=== PATIENT | male | born 1990 | race Two or more races ===

== ENCOUNTER 2023-04-11 11:23 | Outpatient (REF) | payer MEDICAID, SELFPAY ==
--- NOTE | ~2023-04-11 | XR_ITS ---
EXAMINATION: XR HAND, RIGHT CLINICAL INFORMATION: Pain and locking of one month's duration. COMPARISON: None available. TECHNIQUE: PA, lateral, and oblique views of the right hand. FINDINGS: The bones and soft tissues are normal. No fracture. Alignment is anatomic. Joint spaces are maintained. No erosions or soft tissue calcifications. XR/XR hand LT min 3V IMPRESSION: Normal right hand. EXAMINATION: XR HAND, LEFT CLINICAL INFORMATION: Pain and locking of one month's duration. COMPARISON: None available. TECHNIQUE: PA, lateral, and oblique views of the left hand. FINDINGS: The bones and soft tissues are normal. No fracture. Alignment is anatomic. Joint spaces are maintained. No erosions or soft tissue calcifications. IMPRESSION: Normal left hand.
--- NOTE | ~2023-04-11 | XR_ITS ---
EXAMINATION: XR HAND, RIGHT CLINICAL INFORMATION: Pain and locking of one month's duration. COMPARISON: None available. TECHNIQUE: PA, lateral, and oblique views of the right hand. FINDINGS: The bones and soft tissues are normal. No fracture. Alignment is anatomic. Joint spaces are maintained. No erosions or soft tissue calcifications. XR/XR hand RT min 3V IMPRESSION: Normal right hand. EXAMINATION: XR HAND, LEFT CLINICAL INFORMATION: Pain and locking of one month's duration. COMPARISON: None available. TECHNIQUE: PA, lateral, and oblique views of the left hand. FINDINGS: The bones and soft tissues are normal. No fracture. Alignment is anatomic. Joint spaces are maintained. No erosions or soft tissue calcifications. IMPRESSION: Normal left hand.
== END 2023-04-11 11:24 | disposition home or self-care (01) ==
LOC: HO.HHCX 11:23
PROVIDERS: Visit Provider Family Medicine
DX: M79.641 Pain in right hand (principal); M79.642 Pain in left hand
CPT/HCPCS: 73130

== ENCOUNTER 2023-04-22 13:47 | Outpatient (REF) | payer MEDICAID, SELFPAY ==
[2023-04-22 16:20] LABS: SCAN SMEAR FLAG 1
[2023-04-22 16:22] LABS: Basophils Absolute Auto 0.1 X10*3/uL (0.0-0.2); Eosinophils Percent Auto 0.6 % (0-4); Imm Gran Abs Auto 0.02 X10*3/uL (0.00-0.03); Imm Gran Pct Auto 0.4 % (0.0-0.4); Lymphocytes Absolute Auto 1.1 X10*3/uL (1.2-4.9); MANUAL DIFF FLAG SCAN; Mean Corpuscular HGB Conc 31.7 g/dl (31.0-36.0); Mean Corpuscular Hemoglobin 22.5 pg (27.0-33.0); Mean Corpuscular Volume 70.8 fL (80.0-98.0); Monocytes Absolute Auto 0.4 X10*3/uL (0.1-1.2); Monocytes Percent Auto 8.3 % (2-11); Neutrophils Absolute Auto 3.3 x10*3/uL (2.0-8.3); Neutrophils Percent Auto 67.7 % (45-73); Platelet Count 161 X10*3/uL (160-400); Red Blood Count 5.79 X10*6/uL (4.60-5.80); Red Cell Distribution Width 15.6 % (11.0-16.0); White Blood Count 4.9 X10*3/uL (4.8-10.8)
[2023-04-22 16:27] LABS: PLT ABN DIST 1
[2023-04-22 16:44] LABS: SLIDE REVIEW VERIFIED
[2023-04-22 16:47] LABS: Anion Gap 12 (12-20); Blood Urea Nitrogen 8 mg/dL (9-16); C Reactive Protein < 0.04 mg/dL (< or = 0.50); Calcium 9.6 mg/dL (8.4-10.2); Carbon Dioxide 25 mmol/L (22-29); Chloride 103 mmol/L (96-108); Estimated Glomerular Filt Rate > 60; Glucose Random 125 mg/dL (60-115); Potassium 4.3 mmol/L (3.3-5.1); Sodium 136 mmol/L (135-145)
[2023-04-23 12:40] LABS: CT PCR NOT DETECTED (Not Detect.); NG PCR NOT DETECTED (Not Detect.)
== END 2023-04-22 13:48 | disposition home or self-care (01) ==
LOC: HO.HHCL 13:47
PROVIDERS: Visit Provider Internal Medicine
DX: R30.0 Dysuria (principal); R10.32 Left lower quadrant pain; Z20.2 Contact with and (suspected) exposure to infections with a predominantly sexual mode of transmission
CPT/HCPCS: 0353U; 36415; 80048; 85025; 86140

== ENCOUNTER 2023-05-02 08:50 | Outpatient (REF) | payer MEDICAID, SELFPAY ==
--- NOTE | 2023-05-02 08:55 | EMG_ITS ---
Chief complaint: Patient reports 3 weeks acute onset of hand locking, numbness and pain. Denies neck pain. Denies any previous history of similar symptoms. Reason for referral: Evaluate for neuropathy versus radiculopathy Referred by: Dr. Agrawal Procedure done: Bilateral upper extremities NCS/EMG Precautions and/or limitations: None The limb temperature was monitored continuously and remained between 32-36 degrees C during the performance of the NCS. Nerve Conduction Studies Anti Sensory Summary Table ?Stim Site NR Onset (ms) Norm Onset (ms) Peak (ms) Norm Peak (ms) O-P Amp (?V) Norm O-P Amp Site1 Site2 Delta-0 (ms) Dist (cm) Bertin (m/s) Norm Bertin (m/s) Left Median Anti Sensory (2nd Digit) Wrist ? 3.0 3.7 <3.6 44.7 >10 Wrist 2nd Digit 3.0 14.0 47 Right Median Anti Sensory (2nd Digit) Wrist ? 3.1 3.9 <3.6 36.1 >10 Wrist 2nd Digit 3.1 14.0 45 Right Radial Anti Sensory (Thumb) Forearm ? 2.0 2.4 <3.1 1.5 Forearm Thumb 2.0 0.0 Left Ulnar Anti Sensory (5th Digit) Wrist ? 3.0 3.7 <3.7 31.7 >15.0 Wrist 5th Digit 3.0 14.0 47 Right Ulnar Anti Sensory (5th Digit) Wrist ? 3.0 3.7 <3.7 26.3 >15.0 Wrist 5th Digit 3.0 14.0 47 Motor Summary Table ?Stim Site NR Onset (ms) Norm Onset (ms) O-P Amp (mV) Norm O-P Amp iAmp (mV) Amp (1st) (%) Site1 Site2 Delta-0 (ms) Dist (cm) Bertin (m/s) Norm Bertin (m/s) Left Median Motor (Abd Poll Brev) Wrist ? 4.2 <3.9 12.6 >4.5 13.4 100.0 Elbow Wrist 4.5 23.0 51 >45 Elbow ? 8.7 10.3 12.0 81.7 Right Median Motor (Abd Poll Brev) Wrist ? 4.1 <3.9 8.2 >4.5 9.6 100.0 Elbow Wrist 4.2 23.0 55 >45 Elbow ? 8.3 8.6 10.2 104.9 Left Ulnar Motor Run #2 (Abd Dig Minimi) Wrist ? 2.9 <3.0 3.1 >5 4.2 100.0 B Elbow Wrist 4.2 32.0 76 >45 B Elbow ? 7.1 3.0 4.3 96.8 A Elbow B Elbow 1.3 10.0 77 >45 A Elbow ? 8.4 2.7 3.8 87.1 Right Ulnar Motor (Abd Dig Minimi) Wrist ? 3.0 <3.0 4.0 >5 4.4 100.0 B Elbow Wrist 4.0 32.5 81 >45 B Elbow ? 7.0 4.4 4.9 110.0 A Elbow B Elbow 1.3 10.0 77 >45 A Elbow ? 8.3 4.9 5.1 122.5 Paraspinal EMG ?Side Muscle Nerve Root Ins Act Fibs Psw Comment Right Cervical Upper Rami Nml Nml Nml Right Cervical Mid Rami Nml Nml Nml Right Cervical Lower Rami Nml Nml Nml Left Cervical Upper Rami Nml Nml Nml Left Cervical Mid Rami Nml Nml Nml Left Cervical Lower Rami Nml Nml Nml EMG ?Side Muscle Nerve Root Ins Act Fibs Psw Amp Dur Poly Recrt Int Pat Comment Right 1stDorInt Ulnar C8-T1 Nml Nml Nml Nml Nml 0 Nml Complete Right FlexCarRad Median C6-7 Nml Nml Nml Nml Nml 0 Nml Complete Right Biceps Musculocut C5-6 Nml Nml Nml Nml Nml 0 Nml Complete Right Triceps Radial C6-7-8 Nml Nml Nml Nml Nml 0 Nml Complete Right Deltoid Axillary C5-6 Nml Nml Nml Nml Nml 0 Nml Complete Left 1stDorInt Ulnar C8-T1 Nml Nml Nml Incr Incr 0 Nml Complete Left FlexCarRad Median C6-7 Nml Nml Nml Incr Incr 0 Reduced Complete Left Biceps Musculocut C5-6 Nml Nml Nml Nml Nml 0 Nml Complete Left Triceps Radial C6-7-8 Nml Nml Nml Nml Nml 0 Nml Complete Left Deltoid Axillary C5-6 Nml Nml Nml Nml Nml 0 Nml Complete FINDINGS: Bilateral median motor nerves showed prolonged distal latency, normal amplitude and normal conduction velocity. Bilateral ulnar motor nerves showed normal distal latency, small amplitude and normal conduction velocity. Bilateral median sensory nerves showed prolonged peak latency. All other nerves tested were within normal. Concentric needle EMG was performed in selected muscles of the bilateral upper extremities and cervical paraspinals. Study revealed Signs of electric abnormalities as shown in the table below. Left FCR showed increased duration and amplitude, reduced recruitment. Left FDI showed increased duration and amplitude. No denervation seen and paraspinals. IMPRESSION: 1. This is an abnormal study. 2. There is electrodiagnostic evidence for bilateral moderate-severe median neuropathy at the wrist, consistent with carpal tunnel syndrome.. 3. Cannot completely rule out between a bilateral C6 -7 radiculopathy vs bilateral ulnar neuropathy. CLINICAL COMMENT: Further clinical correlation recommended. Consider repeat EMG in 3 months. Thank you for your kind referral. Rena Lei MD, ANGEL Board Certified, [place] Board [employer] and Rehabilitation (ABPMR) Board Certified, [place] Board [employer] Electrodiagnostic Medicine (ABEM) CODIN [id number] x2 MTDD
== END 2023-05-02 08:51 | disposition home or self-care (01) ==
LOC: HO.NEURO 08:50
PROVIDERS: PCP Family Medicine; Visit Provider Family Medicine
DX: Z13.89 Encounter for screening for other disorder (principal)
CPT/HCPCS: 95886; 95911

== ENCOUNTER → 2023-05-02 08:55 | Outpatient (BNV) | payer MEDICAID, SELFPAY | PROVIDERS: PCP Family Medicine; Visit Provider Physical Medicine & Rehabilitation | DX: G56.13 Other lesions of median nerve, bilateral upper limbs (principal); G56.03 Carpal tunnel syndrome, bilateral upper limbs | CPT/HCPCS: 95886; 95911 ==

== ENCOUNTER 2023-07-09 15:00 | Outpatient (RCR) | payer MEDICAID, SELFPAY | END 2023-11-11 15:39 | disposition home or self-care (01) | LOC: HO.OT 15:00 | PROVIDERS: PCP Family Medicine; Visit Provider Family Medicine | DX: G56.03 Carpal tunnel syndrome, bilateral upper limbs (principal) | CPT/HCPCS: 97033; 97035; 97110; 97140; 97165 ==

== ENCOUNTER 2023-11-12 14:04 | Outpatient (AMB) | payer MEDICAID, SELFPAY ==
--- NOTE | 2023-11-12 14:28 | MHC.OFFVIS ---
Intake Vital Signs 11/12/23 14:29 Height 6 ft Weight 140 lb BMI 19.0 Handedness Right Intake Visit Reasons: ov- Bilateral CTS Intake Note: Branden 33 yr old right hand dominant male presents today for a new patient visit for CTS in bilateral hands. States his tingling is worse. Patient states his symptoms are worse in the night time and morning. Patient states that his left hand is worse and the right. EMG done. He - that his tingling is also worse when he is working. Allergies No Known Allergies Allergy (Verified 11/12/23 14:35) HPI ov- Bilateral CTS HPI Details Branden is a 33 year old right hand dominant man who presents for a NCS review of his bilateral hand numbness. He complains of numbness & tingling in his thumb, index, and middle fingers bilaterally, L>R. Symptoms intermittent, but daily, worse at night. He says he has occasional numbness in his small fingers, but this is not often. He works as a retail cosmetics sales counter manager. 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 Review of Systems Const All systems reviewed & are unremarkable except as noted in HPI and below Physical Exam Vital Signs: BMI result Body Mass Index 19.0 Const General: cooperative, healthy appearing and no acute distress Orientation/consciousness: patient oriented x3 HEENT Head: Yes normocephalic and Yes atraumatic Eyes EOM: EOMs intact bilaterally Resp Effort & Inspection: normal respiratory effort and able to speak in complete sentences Cardio Jugular venous distension: no JVD Skin General skin exam: turgor normal Rashes: no rashes Neuro General: patient oriented x3 Extrem Other: Evaluation of Bilateral Upper Extremity: The patient is alert, oriented, and in no acute distress Neuro: Median, Ulnar, Radial nerves motor and sensory intact and sensation is normal to the tips of all digits No thenar or intrinsic wasting Good APB muscle belly firing and good finger cross Vascular: Cap refill brisk ROM: He can make a fist and extend all his digits No locking or catching Skin: No lacerations or abrasions. General: No Ecchymosis. No Erythema or evidence of infection. Nerve Conduction Study: IMPRESSION: 1. This is an abnormal study. 2. There is electrodiagnostic evidence for bilateral moderate-severe median neuropathy at the wrist, consistent with carpal tunnel syndrome.. 3. Cannot completely rule out between a bilateral C6 -7 radiculopathy vs bilateral ulnar neuropathy. CLINICAL COMMENT: Further clinical correlation recommended. Consider repeat EMG in 3 months. Rena Lei MD, ANGEL 05/07/23 Psych Appearance: grossly normal Affect: normal affect Attitude: cooperative Assessment & Plan Assessment & Plan (1) Carpal tunnel syndrome of left wrist: Code(s): G56.02 - Carpal tunnel syndrome, left upper limb (2) Carpal tunnel syndrome of right wrist: Code(s): G56.01 - Carpal tunnel syndrome, right upper limb Plan Assessment & Plan: 1. Left carpal tunnel syndrome, moderate-severe Symptoms intermittent, but daily, worse at night I educated him about this condition I discussed operative and non-operative treatment options The patient would like to proceed with surgery, beginning with the left side The risks and benefits of operative treatment were discussed with the patient and the patient wishes to proceed with surgery. These risks include, but are not limited to risk of damage to blood vessels, nerves, tendons, infection, recurrence, incomplete relief of preoperative symptoms, persistent pain, possible need for further surgery and the risks associated with regional blocks and anesthesia. The plan is to take the patient to the operating room sometime in the next few weeks for the following procedures: 1. Left carpal tunnel release, under local All of the preoperative paperwork including the consent was reviewed today. All the patient's questions were answered. The patient understands that they will be contacted by our electrical engineering intern soon to schedule this procedure He denies Diabetes, blood thinners, asthma, heart, lung, kidney issues 2. Right carpal tunnel syndrome, moderate-severe Symptoms intermittent, but daily, worse at night We will discuss treatment at a later date when his left side has recovered from surgery Scribed for Donna Hdz MD by Norberto Cline bilingual medical receptionist, on 11/12/23 at 2:50 PM, EST. Coding Level of Care Code New Pt Level 4 (98395) Diagnoses Carpal tunnel syndrome of left wrist G56.02 Carpal tunnel syndrome of right wrist G56.01
[2023-11-12 14:29] VITALS: BMI 19.0
== END 2023-11-12 15:16 | disposition home or self-care (01) ==
PROVIDERS: PCP Family Medicine; Visit Provider Orthopaedic Surgery
DX: G56.03 Carpal tunnel syndrome, bilateral upper limbs (principal)
CPT/HCPCS: 99204

== ENCOUNTER → 2023-11-12 14:04 | Outpatient (BNVA) | payer MEDICAID, SELFPAY | PROVIDERS: PCP Family Medicine; Visit Provider Orthopaedic Surgery | DX: G56.03 Carpal tunnel syndrome, bilateral upper limbs (principal) | CPT/HCPCS: 99202 ==

== ENCOUNTER 2023-11-18 10:16 | Outpatient (REF) | payer MEDICAID, SELFPAY ==
[2023-11-18 12:11] LABS: Hematocrit 42.2 % (42.0-52.0); Hemoglobin 13.4 g/dl (14.0-18.0); Mean Corpuscular HGB Conc 31.8 g/dl (31.0-36.0); Mean Corpuscular Hemoglobin 22.8 pg (27.0-33.0); Mean Corpuscular Volume 71.8 fL (80.0-98.0); Red Blood Count 5.88 X10*6/uL (4.60-5.80); Red Cell Distribution Width 16.9 % (11.0-16.0); White Blood Count 6.3 X10*3/uL (4.8-10.8)
[2023-11-18 12:16] LABS: Platelet Count 174 X10*3/uL (160-400)
[2023-11-18 13:28] LABS: CT PCR NOT DETECTED (Not Detect.); NG PCR NOT DETECTED (Not Detect.)
[2023-11-18 13:28] LABS: Estimated Average Glucose 114 mg/dL; Hemoglobin A1c % 5.6 % (<6.0)
[2023-11-18 17:34] LABS: Alanine Aminotransferase 18 U/L (0-40); Albumin Level 4.5 g/dL (3.5-5.0); Alkaline Phosphatase 52 U/L (39-117); Anion Gap 10 (12-20); Aspartate Amino Transferase 18 U/L (5-37); Bilirubin Direct 0.1 mg/dL (0.0-0.5); Bilirubin Total 0.4 mg/dL (0.0-1.0); Blood Urea Nitrogen 11 mg/dL (9-16); Calcium 9.6 mg/dL (8.4-10.2); Carbon Dioxide 28 mmol/L (22-29); Chloride 105 mmol/L (96-108); Cholesterol 168 mg/dL (<200); Estimated Glomerular Filt Rate > 60; Ferritin 54 ng/mL (20-250); Free T4 (Free Thyroxine) 0.86 ng/dL (0.71-1.85); Glucose Random 73 mg/dL (60-115); HDL Cholesterol 48 mg/dL (>40); Iron 119 mcg/dL (45-160); LDL Cholesterol Calculated 99 mg/dL (<100); Percent Iron Saturation 40 % (15-50); Potassium 4.2 mmol/L (3.3-5.1); Sodium 139 mmol/L (135-145); Thyroid Stimulating Hormone 0.64 uIU/mL (0.32-4.0); Total Iron Binding Capacity 294 mcg/dL (228-428); Total Protein 7.3 g/dL (6.5-8.0); Triglycerides 109 mg/dL (<150); Unsaturated Iron Binding 175 ug/dL; Vitamin D 25-OH Total 19.1 ng/mL (>30)
[2023-11-18 19:27] LABS: Folate 5.1 ng/mL (> or = 4.0); Vitamin B12 345 pg/mL (200-900)
[2023-11-19 08:37] LABS: HBS Num1 > 1000.00 mIU/mL (0-7.99); HBsAGNum1 0.35 S/CO (0.00-0.99); HIV AB/AG Nonreactive (Nonreactive); HIV Num 1 0.05 S/CO (0.00-0.99); Hepatitis B Surface Antigen Negative (Negative); ~HepC Num1 0.28 S/CO (0.00-0.79); ~Hepatitis B Surface Antibody REACTIVE (Nonreactive); ~Hepatitis C Antibody Nonreactive (Nonreactive)
[2023-11-19 10:39] LABS: RPR Rapid Plasma Reagin NON-REACTIVE (NON-REACTIVE)
== END 2023-11-18 10:17 | disposition home or self-care (01) ==
LOC: HO.HHCL 10:16
PROVIDERS: Visit Provider Family Medicine
DX: Z00.00 Encounter for general adult medical examination without abnormal findings (principal); Z11.4 Encounter for screening for human immunodeficiency virus [HIV]; F33.9 Major depressive disorder, recurrent, unspecified; D64.9 Anemia, unspecified; J45.20 Mild intermittent asthma, uncomplicated; K21.9 Gastro-esophageal reflux disease without esophagitis; K58.1 Irritable bowel syndrome with constipation; R63.6 Underweight; G56.03 Carpal tunnel syndrome, bilateral upper limbs; R94.130 Abnormal response to nerve stimulation, unspecified; R20.2 Paresthesia of skin
CPT/HCPCS: 0353U; 36415; 80048; 80061; 80076; 82306; 82607; 82728; 82746; 83036; 83540; 84439; 84443; 85027; 86592; 86706; 86803; 87340; 87389

== ENCOUNTER 2024-03-29 13:41 | Day surgery (SDC) | payer MEDICAID, SELFPAY ==
--- NOTE | 2024-03-29 13:41 | MHC.SHP ---
Pre-Procedural Eval Section A - 24 Hr Update-Section A only Date of Service: 03/29/24 The patient is an INPATIENT: No Changes since office visit: No Cold of Flu in the past 2 weeks, No New Medical Problems, No Changes in Medication and No Patient answered all questions The patient has been examined within 24 hours of the surgical procedure. The History & Physical has been completed within 30 days and I have reviewed it.: Yes Section B - Complete if H&P > 30 days Chief Complaint: Carpal tunnel syndrome, left upper limb Allergies: Allergies Allergy/AdvReac Type Severity Reaction Status Date / Time No Known Allergies Allergy Verified 11/12/23 14:35 Exam Exam Comment: Left carpal tunnel syndrome Plan Diagnosis/Plan: Unchanged I have reviewed the history and physical and performed a pertinent physical examination on my patient. No changes have occurred unless specified. Time Spent With Patient Time: Total time managing care of this patient today ____ minutes.
--- NOTE | 2024-03-29 13:42 | P.OP_ITS ---
Operative Note Operative Note Date of Service: 03/29/24 Narrative: Preop diagnosis: 1. Left Carpal tunnel syndrome Postop diagnosis: same Procedure: 1. Left Carpal tunnel release Surgeon: Donna Hdz MD Security Alarm Technician: None Anesthesia: local block using 1% lidocaine with epinephrine Findings: Thickened transverse carpal ligament. EBL: Less than 5 mL Specimens: None Complications: None Disposition: Brought to recovery room in stable condition Plan: Follow-up for 10-14 days for wound check and suture removal Indications: The patient is 33 years old, with left carpal tunnel syndrome that has been unresponsive to nonoperative management. The risks and benefits of operative treatment including but not limited to risk of damage to blood vessels, nerves, tendons, infection, persistent pain, persistent symptoms, or possible need for additional surgery were discussed with the patient and the patient wishes to proceed with surgery. Procedure: Once consent was obtained a local block was performed using a combination of 1% lidocaine with epinephrine. The patient was then brought back to the operating suite and placed on the operative table in supine position. The left upper extremity was prepped and draped in a standard surgical fashion. Once assured that we had a good block, a 2.0 cm longitudinal incision was made centered over the carpal tunnel. The incision was made through the skin to the subcutaneous tissues using a #15 blade. Dissection was made down to the level of the transverse carpal ligament with care being taken to protect the palmar cutaneous nerve. Once the transverse carpal ligament was clearly visualized, a longitudinal incision was made in the transverse carpal ligament 1st using a #15 blade, then using tenotomy scissors under direct visualization. Care was taken to look for and protect the motor branch of the median nerve when seen in this area. Once satisfied with our carpal tunnel release the wound was copiously irrigated with normal saline and hemostasis was obtained with a brief period of local pressure. The skin edges were reapproximated with some 5.0 nylon suture material and a sterile dressing was applied. The patient appears to have tolerated the procedure well and with no complicatio ns. All digits were well vascularized at the conclusion of the case.
[2024-03-29 14:23] VITALS: BMI 17.9
--- NOTE | 2024-03-29 15:23 | PC.NURSE ---
timeout completed pt tolerated well the block
[2024-03-29 17:03] VITALS: BP 114/74; PULSE 55; RESP 18; TEMP 36.8; O2SAT 100
== END 2024-03-29 16:55 | disposition home or self-care (01) ==
PROVIDERS: PCP Family Medicine; Visit Provider Orthopaedic Surgery
PROC: (CPT 64721; principal; 2024-03-29 15:40)
DX: G56.02 Carpal tunnel syndrome, left upper limb (principal); R20.0 Anesthesia of skin; R20.2 Paresthesia of skin; F17.210 Nicotine dependence, cigarettes, uncomplicated
CPT/HCPCS: 64721; J0171

== ENCOUNTER → 2024-03-29 13:41 | Outpatient (BNV) | payer MEDICAID, SELFPAY | PROVIDERS: PCP Family Medicine; Visit Provider Orthopaedic Surgery | DX: G56.02 Carpal tunnel syndrome, left upper limb (principal) | CPT/HCPCS: 64721 ==

== ENCOUNTER 2024-04-13 09:44 | Outpatient (AMB) | payer MEDICAID, SELFPAY ==
--- NOTE | 2024-04-13 09:55 | MHC.OFFVIS ---
Vital Signs 04/13/24 10:02 Handedness Right Intake Visit Reasons: PO, L CTR 03/29/24 AR Intake Note: Branden is a 33 year old right hand dominant male who presents today post operatively S/P Left Carpal Tunnel Release DOS: 03/28/2024 w/ Dr dHz. Patient reports numbness and tingling went away but now has complaints his left pinky is having pains. He says whenever he stretches out his fingers he feels a pulling sensation in between his DIP and PIP joint on the volar aspect. He has some visual bruising on the volar aspect of left pinky. Sutures will be removed and steri strips applied. Allergies hydromorphone [From Dilaudid] Allergy (Verified 04/13/24 10:02) Hives meperidine [From Demerol] Allergy (Verified 04/13/24 10:02) Hives morphine Allergy (Verified 04/13/24 10:02) Nausea and Vomiting HPI HPI PO, L CTR 03/29/24 AR: Details: Patient is a 33-year-old male who presents for postoperative evaluation status post left carpal tunnel release, DOS 03/29/[address] Hdz. Today, the patient reports that he is feeling well, but that he is still experiencing some numbness in the median nerve distribution of the left hand, understands that this was something he knew could happen from discussion prior to surgery. The patient also reports he has had some discomfort on the ulnar aspect of the left small finger over the last few days. Patient reports no issues with the incision site, and states that it feels better now that his stitches are out. Reports no erythema or drainage from the incision site. No other acute complaints or concerns at this time. [facility] Medical History Spontaneous pneumothorax Asthma Social History Alcohol intake: never Patient Tobacco Use Status: Current everyday Tobacco user Current occupation: jewelry sales/ right hand dominant Review of Systems Const All systems reviewed & are unremarkable except as noted in HPI and below Physical Exam Extrem Other: Left hand exam Patient is alert, oriented, and in no acute distress. Neuro: Patient reports diminished sensation in the tip of the left middle finger, as well as on the volar aspect of the 1st webspace Patient reports normal sensation of the tips of all of the digits of the right hand at this time Vascular: Cap refill brisk Pain: Patient reports some very mild tenderness to palpation about the proximal aspect of the incision site No other tenderness to palpation noted Range of motion of the left hand is full and painless ROM: Patient is able to make a closed fist and extend the digits of the left hand fully without difficulty Skin: Well approximated and well healing incision site noted the volar aspect of the left wrist General: No ecchymosis, erythema, or evidence of infection. Psych: Appears grossly normal Affect normal Attitude cooperative Right hand exam Patient is alert, oriented, and in no acute distress. Neuro: Patient reports diminished sensation in the median nerve distribution of the right hand Vascular: Cap refill brisk Pain: Tenderness to palpation over the A1 brennan of the right thumb Patient also reports discomfort with locking and catching of the right thumb ROM: Visible and palpable locking and catching of the right thumb noted Patient is able to make a closed fist and extend all other digits of the right hand fully without difficulty Skin: No lacerations or abrasions. General: No ecchymosis, erythema, or evidence of infection. Psych: Appears grossly normal Affect normal Attitude cooperative Results Reviewed Results Reviewed: IMPRESSION: 1. This is an abnormal study. 2. There is electrodiagnostic evidence for bilateral moderate-severe median neuropathy at the wrist, consistent with carpal tunnel syndrome.. 3. Cannot completely rule out between a bilateral C6 -7 radiculopathy vs bilateral ulnar neuropathy. CLINICAL COMMENT: Further clinical correlation recommended. Consider repeat EMG in 3 months. Rena Lei MD, ANGEL 05/07/23 Assessment & Plan Assessment & Plan (1) Carpal tunnel syndrome of right wrist: Code(s): G56.01 - Carpal tunnel syndrome, right upper limb Category: Medical (2) Carpal tunnel syndrome of left wrist: Code(s): G56.02 - Carpal tunnel syndrome, left upper limb Category: Medical (3) Trigger thumb, right thumb: Code(s): M65.311 - Trigger thumb, right thumb Category: Medical Plan 1. Carpal tunnel syndrome, right Symptoms constant, daily, worse at night 2. Trigger thumb, right I educated the patient about the condition. I discussed both operative and nonoperative treatment options. The patient would like to proceed with surgery. The risks and benefits of operative treatment were discussed with the patient and the patient wishes to proceed with surgery. These risks include, but are not limited to, risk of damage to blood vessels, nerves, tendons, infection, recurrence, incomplete relief of preoperative symptoms, persistent pain, possible need for further surgery, and the risks associated with regional blocks and/or anesthesia. Plan is to take the patient to the operating room at some point in the next few weeks for the following procedures: 1. Right carpal tunnel release under local anesthesia 2. Right trigger thumb release under local anesthesia All of the preoperative paperwork including the consent was discussed today. All of the patient's questions were answered in the clinic today. The patient understands that they will be in contact with our surgical sales representative to discuss scheduling their procedure. Patient denies diabetes, blood thinners, asthma, heart issues, lung issues, kidney issues, or current smoking. 2. Carpal tunnel syndrome, left Status post carpal tunnel release DOS 03/29/2024 Patient appears to be recovering well postoperatively Patient is educated about the typical recovery course At this time, patient is educated to continue with [id number] exercises to prevent stiffness of the right hand Patient is also educated that he should be on light duty for a further 2 weeks at work, as he will continue to have a 2 lb weight restriction in his left hand Patient is educated that he can start gradual ramp up back to full normal activity in 2 weeks Patient is amenable to this plan Patient will follow-up as needed with any acute concerns Medications: Discontinued oxycodone-acetaminophen 5-325 mg Partial Fill upon patient request. Discontinued Reason: Patient Completed Course 1 tab PO Q6H PRN 5 tabs 0RF pain Coding Level of Care Code Est Pt Level 4 (30799) Diagnoses Carpal tunnel syndrome of right wrist G56.01 Carpal tunnel syndrome of left wrist G56.02 Trigger thumb, right thumb M65.311
== END 2024-04-13 10:48 | disposition home or self-care (01) ==
PROVIDERS: PCP Family Medicine
DX: G56.03 Carpal tunnel syndrome, bilateral upper limbs (principal); M65.311 Trigger thumb, right thumb
CPT/HCPCS: 99214

== ENCOUNTER → 2024-04-13 09:44 | Outpatient (BNVA) | payer MEDICAID, SELFPAY | PROVIDERS: PCP Family Medicine | DX: G56.03 Carpal tunnel syndrome, bilateral upper limbs (principal); M65.311 Trigger thumb, right thumb | CPT/HCPCS: 99212 ==

== ENCOUNTER 2024-11-08 08:45 | Day surgery (SDC) | payer MEDICAID, SELFPAY ==
[2024-11-08 10:11] VITALS: BP 122/86; PULSE 62; RESP 16; TEMP 36.7; O2SAT 100; BMI 18.5
--- NOTE | 2024-11-08 11:18 | P.OP_ITS ---
Operative Note Operative Note Date of Service: 11/08/24 Narrative: Preop diagnosis: 1. Right Carpal tunnel syndrome 2. Right trigger thumb Postop diagnosis: same Procedure: 1. Right Carpal tunnel release 2. Right thumb trigger release Surgeon: Donna Hdz MD Inspector Aligning: None Anesthesia: local block using 1% lidocaine with epinephrine Findings: Thickened transverse carpal ligament. EBL: Less than 5 mL Specimens: None Complications: None Disposition: Brought to recovery room in stable condition Plan: Follow-up for 10-14 days for wound check and suture removal Indications: The patient is 34 years old, with right carpal tunnel syndrome and right trigger thumb that have been unresponsive to nonoperative management. The risks and benefits of operative treatment including but not limited to risk of damage to blood vessels, nerves, tendons, infection, persistent pain, persistent symptoms, or possible need for additional surgery were discussed with the patient and the patient wishes to proceed with surgery. Procedure: Once consent was obtained a local block was performed using a combination of 1% lidocaine with epinephrine. The patient was then brought back to the operating suite and placed on the operative table in supine position. The right upper extremity was prepped and draped in a standard surgical fashion. Once assured that we had a good block, a 1.5 cm oblique incision was made centered over the A1 brennan of the right thumb . The incision was made through the skin to the subcutaneous tissues using a #15 blade. Careful dissection was made down to the level of the A1 brennan using tenotomy scissors, with care being taken to protect the nearby neurovascular structures. A longitudinal incision was made in the A1 brennan 1st using a #15 blade, then using tenotomy scissors under direct visualization. The A1 brennan was noted to be thickened. Following our A1 brennan release, we no longer saw any locking or catching of the digit with flexion and extension. Once assured that we had a good block, a 2.0 cm longitudinal incision was made centered over the right carpal tunnel. The incision was made through the skin to the subcutaneous tissues using a #15 blade. Dissection was made down to the level of the transverse carpal ligament with care being taken to protect the palmar cutaneous nerve. Once the transverse carpal ligament was clearly visualized, a longitudinal incision was made in the transverse carpal ligament 1st using a #15 blade, then using tenotomy scissors under direct visualization. Care was taken to look for and protect the motor branch of the median nerve when seen in this area. Once satisfied with our carpal tunnel release the wound was copiously irrigated with normal saline and hemostasis was obtained with a brief period of local pressure. The skin edges were reapproximated with some 5.0 nylon suture material and a sterile dressing was applied. The patient appears to have tolerated the procedure well and with no complications. All digits were well vascularized at the conclusion of the case.
--- NOTE | 2024-11-08 11:18 | MHC.SHP ---
Pre-Procedural Eval Section A - 24 Hr Update-Section A only Date of Service: 11/08/24 The patient is an INPATIENT: No Changes since office visit: No Cold of Flu in the past 2 weeks, No New Medical Problems, No Changes in Medication and No Patient answered all questions The patient has been examined within 24 hours of the surgical procedure. The History & Physical has been completed within 30 days and I have reviewed it.: Yes Section B - Complete if H&P > 30 days Chief Complaint: carparl tunnel release and trigger release Allergies: Allergies Allergy/AdvReac Type Severity Reaction Status Date / Time hydromorphone [From Dilaudid] Allergy Hives Verified 04/13/24 10:02 meperidine [From Demerol] Allergy Hives Verified 04/13/24 10:02 morphine Allergy Nausea and Verified 04/13/24 10:02 Vomiting Plan Diagnosis/Plan: Unchanged I have reviewed the history and physical and performed a pertinent physical examination on my patient. No changes have occurred unless specified. Time Spent With Patient Time: Total time managing care of this patient today ____ minutes.
[2024-11-08 12:07] VITALS: BP 116/79; PULSE 62; RESP 16; O2SAT 99
== END 2024-11-08 12:09 | disposition home or self-care (01) ==
PROVIDERS: PCP Family Medicine; Visit Provider Orthopaedic Surgery
PROC: (CPT 64721; principal; 2024-11-08 11:10)
PROC: (CPT 26055; 2024-11-08 11:10)
DX: G56.01 Carpal tunnel syndrome, right upper limb (principal); M65.311 Trigger thumb, right thumb; Z98.890 Other specified postprocedural states; R20.0 Anesthesia of skin; Z88.5 Allergy status to narcotic agent; F17.210 Nicotine dependence, cigarettes, uncomplicated
CPT/HCPCS: 64721; 26055; J0171; J2003

== ENCOUNTER → 2024-11-08 08:45 | Outpatient (BNV) | payer MEDICAID, SELFPAY | PROVIDERS: PCP Family Medicine; Visit Provider Orthopaedic Surgery | DX: G56.01 Carpal tunnel syndrome, right upper limb (principal); M65.311 Trigger thumb, right thumb | CPT/HCPCS: 26055; 64721 ==